=== PATIENT | female | born 1985 | race African-American/Black ===

== ENCOUNTER 2019-05-20 11:07 | Emergency (ER) | payer OTHER ==
[~2019-05-20] VITALS: Ht 160 cm; Wt 50.0 kg
[2019-05-20] MEDS: DIPHENHYDRAMINE 50MG/ML VIAL IM ONE (12:34)
[2019-05-20] MEDS: TETANUS, DIPHTHERIA, PERTUSSIS VAC/PF 0.5ML (>7YR OLD) IM ONE (12:34)
[2019-05-20 13:12] VITALS: BP 113/62
== END 2019-05-20 13:13 | disposition home or self-care (01) ==
LOC: ER 11:07
DX: S80.861A Insect bite (nonvenomous), right lower leg, initial encounter (principal); W57.XXXA Bitten or stung by nonvenomous insect and other nonvenomous arthropods, initial encounter; Y93.89 Activity, other specified; Y92.89 Other specified places as the place of occurrence of the external cause; Y99.8 Other external cause status; F17.290 Nicotine dependence, other tobacco product, uncomplicated; Z88.0 Allergy status to penicillin
CPT/HCPCS: 81025; 90471; 90715; 96372; 99283; J1200